=== PATIENT | male | born 1945 | race Caucasian/White ===

== ENCOUNTER 2017-11-21 17:49 | Emergency (ER) | payer MEDICARE, MEDICAID, SELFPAY ==
[2017-11-21] MEDS: Haloperidol 5 MG TAB PO (18:54)
[2017-11-21] MEDS: Citalopram 20 MG TAB PO ×2 (19:03→19:04)
[2017-11-21] MEDS: Donepezil 5 MG TAB PO (19:03)
[2017-11-21 20:07] VITALS: BP 92/48; PULSE 78; RESP 18; TEMP 36.7; O2SAT 98
--- NOTE | 2017-11-21 20:20 | W.ED.GENAD ---
Discharge Plan Disposition Patient Disposition: HOME Condition: Good Discharge Details Chief Complaint: GenMedical Clinical Impression: Aggression Primary Care Provider: Prachi Carpio ED Provider: Mustapha Retana Home Meds and New Rx's Prescriptions: No Action citalopram 20 MG tablet 10 mg PO DAILY RF: 0 simvastatin 10 MG tablet 10 mg PO HS RF: 0 acetaminophen [Acetaminophen Extra Strength] 500 MG tablet 1,000 mg PO BID PRNQty: 0 RF: 0 clopidogrel [Plavix] 75 MG tablet 75 mg PO DAILY RF: 0 donepezil 5 MG tablet 5 mg PO DAILY RF: 0 Discharge Instructions Additional Instructions: If you notice any return of his aggravation or assault, or any other significant abnormalities please bring him back to the ER for reassessment. Please use de-escalating techniques, and his home medications prior to return. Referrals: Prachi Carpio [Primary Care Provider] - Medical Decision Making This is a 72-year-old male with past medical history of dementia, previous intracranial stroke, who takes Seroquel and Aricept, who presents today for evaluation of aggressive behavior. His nursing facility he was refusing to take his medications, he was acting aggressively and trying to strike other bystanders. On his initial assessment here he was sitting calmly in the custody of police but did show some signs of mild anxiety. Family nursing staff from the facility was concerned that he does switch his mood very rapidly. Fortunately the current scenario in the emergency department was a search, there were no rooms or hallway beds available for the patient. Had a long discussion with the family, police officers, and the patient, and through shared decision making process the patient was acting calmly at this time we agreed to watch the patient in an isolated setting in the [facility] area, where no other patients were at this time. Physical exam showed no significant abnormalities, we did observe the patient for 30 minutes and he continued to demonstrate no concerning symptomatology. We then orally gave the patient his nighttime medications in addition to 5 mg of Haldol. We had a second observation period for over 1 hour, where we fed the patient, he ate [employer], drank water, and became extremely pleasant with staff and family members and nursing staff from the facility. After prolonged observation. Demonstrating no signs of aggravation, assault, or aggressive behavior we discussed the case with the family, contacted his rehab facility and discussed the case with nursing staff there. 3 continued shared decision making process we agreed that the patient was safe and stable for discharge back to his facility having taken his medications and demonstrated excellent behavior here. We will order an outpatient urinalysis for further evaluation of potential UTI at the request of family however I think this is unlikely to be the cause and etiology of his current symptoms. Patient will be discharged back to his facility under the accompaniment of nursing staff from the facility and family. All questions were answered I have extensively reviewed the treatment plan and discharge instructions with the patient and their family. I have addressed all patient concerns at this time. The patient and family was made aware of what symptoms to monitor for that would warrant a return to the emergency department. Discussed the plan with the patient and family, they demonstrate verbal understanding and agreement with our assessment and plan at this time. HPI General Date/Time Provider Initiated Documentation: 11/21/17 18:15. HPI Narrative: This is a 72-year-old male with a past medical history of an intracranial hemorrhage/stroke, dementia, high cholesterol, who was at a rehab facility, who takes Seroquel, Aricept, and Plavix. He presents today from his rehab facility with chief complaint of agitation. Nursing staff states that earlier today he began to get aggravated, cranky, it would not take his nighttime medications, and began to swing and hit at other residents. He denies any homicidal or suicidal ideations. Nursing staff felt that they were unable to meet his current needs, or de-escalate the situation in spite of their best attempts, he was sent to the ER under police escort for further evaluation and management. Upon arrival the patient was sitting calmly with police, he had no complaints personally. He shows no current aggravation. Family who is at bedside, in addition to nursing supervising staff from the facility state that this is a definite transition from where he was before, however they are concerned that he can switch his mood very quickly, and become violent. Patient has no other complaints, family has no other additional complaints at this time. Patient has had no recent traumas, falls where he has hit his head, significant medication changes in the last week, or other new aggravating or relieving components. Related Data Home Medications Medication Instructions Recorded Confirmed citalopram 10 mg PO DAILY tab-cap 12/04/13 08/08/17 simvastatin 10 mg PO HS 02/07/16 08/08/17 acetaminophen [Acetaminophen Extra 1,000 mg PO BID PRN #0 02/27/16 08/08/17 Strength] clopidogrel [Plavix] 75 mg PO DAILY tab 07/25/16 08/08/17 donepezil 5 mg PO DAILY 06/25/17 08/08/17 Previous Rx's Medication Instructions Recorded acetaminophen [Acetaminophen Extra 1,000 mg PO BID PRN #0 02/27/16 Strength] clopidogrel [Plavix] 75 mg PO DAILY tab 07/25/16 Allergies Allergy/AdvReac Type Severity Reaction Status Date / Time bupropion AdvReac Mild shakey Unverified 11/21/17 19:35 feeling General Stated Complaint: GenMedical CRISTEL: 3 Review of Systems Review of Systems All systems reviewed & are unremarkable except as noted in HPI and below PFSH Social History Smoking/Tobacco Use Status: Former Tobacco Use Exam Narrative Exam Narrative: 1.Const: Well-nourished, Well-developed, appearing stated age 2.Eyes: PERRL, no conjunctival injection, and symmetrical lids. 3.ENT: Atraumatic external nose and ears. Moist MM. Neck: Symmetric, trachea midline, No thyromegaly. 4.CVS: +S1/S2, No murmurs or gallops. Peripheral pulses 2+ and equal in all extremities. Brisk capillary refill in all extremities. 5.RESP: Unlabored respiratory effort. Clear to auscultation bilaterally. No wheezes rales or rhonchi 6.GI: Soft, Nontender/Nondistended, No hepatosplenomegaly. No guarding or rebound. 7.MSK: Normocephalic/Atraumatic, Extremities w/o deformity or ttp No cyanosis or clubbing, Normal movement of all extremities 8.Skin: Warm, Dry. No rashes or lesions. 9.Neuro: umbrella tipper II-XII grossly intact. Sensation grossly intact, no focal neurologic deficits. 10.Psych: (AAO) x3. Appropriate mood and affect. He is sitting calmly, shows no aggressive behaviors at this time. No signs of overt confusion. Course Respiratory Effort Non-Labored 11/21/17 19:30
== END 2017-11-21 20:09 | disposition home or self-care (01) ==
PROVIDERS: Emergency Provider Student in an Organized Health Care Education/Training Program; PCP Nurse Practitioner Family
DX: F03.91 Unspecified dementia, unspecified severity, with behavioral disturbance (principal)
CPT/HCPCS: 99285; 99284

== ENCOUNTER 2017-11-22 07:11 | Outpatient (REF) | payer MEDICARE, SELFPAY ==
[2017-11-22 08:56] LABS: Bilirubin Negative (Negative); Blood Negative (Negative); Clarity Clear; Glucose Negative (Negative); Ketones Negative (Negative); Leukocyte Esterase Negative (Negative); Nitrite Negative (Negative); Urobilinogen 0.2 EU/dL (Up TO 0.2); pH 5.5 (5-8)
== END 2017-11-22 07:31 ==
LOC: LBN 07:11
PROVIDERS: PCP Nurse Practitioner Family; Visit Provider Student in an Organized Health Care Education/Training Program
DX: R46.89 Other symptoms and signs involving appearance and behavior (principal)
CPT/HCPCS: 81003

== ENCOUNTER 2018-01-20 23:51 | Emergency (ER) | payer MEDICARE, MEDICAID, SELFPAY ==
[2018-01-20 23:40] VITALS: BP 92/50; TEMP 36.9
--- NOTE | 2018-01-20 23:44 | W.ED.GENAD ---
Discharge Plan Disposition Patient Disposition: SNF (LEVEL 1) [facility] Discharge Details Chief Complaint: AMS/LOC Clinical Impression: Agitation Reason For Visit: LYNN Primary Care Provider: Prachi Carpio ED Provider: Jan Fitzpatrick Home Meds and New Rx's Prescriptions: Continued mirtazapine 7.5 mg Tablet 7.5 mg PO DAILY RF: 0 acetaminophen [Acetaminophen Extra Strength] 500 MG tablet 1,000 mg PO BID PRNQty: 0 RF: 0 clopidogrel [Plavix] 75 MG tablet 75 mg PO DAILY RF: 0 donepezil 5 MG tablet 5 mg PO DAILY RF: 0 quetiapine [Seroquel] 25 mg Tablet 12.5 mg PO DAILY RF: 0 Discharge Instructions Additional Instructions: Please take your medications as prescribed. Please follow-up with your doctor. Return to the ER for any worsening or new concerning symptoms. Discharge Data Discharge Date/Time-TO BE ENTERED AT DEPARTURE: 01/21/18 01:52 Medical Decision Making 23:59 --72-year-old male with history of dementia arrives from nursing rehab facility with concern for compatible behavior and medication noncompliance. Patient was given his Seroquel 12.5 mg as well as Ativan 1 mg orally with a nice pop which he requested. No signs of focal bacterial infection on exam. History and review of systems limited secondary to dementia. Plan to check urinalysis to rule out UTI. 1:34 --urinalysis obtained by straight catheterization reviewed and is not consistent with a UTI. Patient reassessed multiple times. He has been quite cooperative here in the emergency department. No agitated behavior. Patient was given ice pops which he much appreciated and was happy to take his medication. He was transfered back to nursing care facility in stable condition. HPI General Mode of arrival: EMS. Date/Time Provider Initiated Documentation: 01/20/18 23:55. Limitations to Documentation: altered mental status. Information obtained by: patient and EMS. HPI Narrative: 72-year-old male with history of dementia, custodial resident, arrives with EMS with concern from custodial staff for agitation. Apparently the patient was refusing to take his nighttime dose of Seroquel and was kicking staff. Patient has no complaint. History and review of systems limited as patient has dementia. Related Data Home Medications Medication Instructions Recorded Confirmed acetaminophen [Acetaminophen Extra 1,000 mg PO BID PRN #0 02/27/16 11/21/17 Strength] clopidogrel [Plavix] 75 mg PO DAILY tab 07/25/16 01/21/18 donepezil 5 mg PO DAILY 06/25/17 01/21/18 quetiapine [Seroquel] 12.5 mg PO DAILY 11/21/17 11/21/17 mirtazapine 7.5 mg PO DAILY 01/21/18 01/21/18 Previous Rx's Medication Instructions Recorded acetaminophen [Acetaminophen Extra 1,000 mg PO BID PRN #0 02/27/16 Strength] clopidogrel [Plavix] 75 mg PO DAILY tab 07/25/16 Allergies Allergy/AdvReac Type Severity Reaction Status Date / Time bupropion AdvReac Mild shakey Unverified 01/21/18 00:00 feeling General CRISTEL: 3 Review of Systems Review of Systems Unobtainable due to mental status PFSH Dementia (Chronic) Social History Smoking/Tobacco Use Status: Former Tobacco Use Exam Const General: cooperative and no acute distress HENMT Head: normocephalic and atraumatic Mouth: moist mucous membranes Eyes Conjunctivae: normal conjunctivae Sclera: normal sclerae EOM: EOM intact bilaterally Resp Auscultation: clear to auscultation bilaterally, no rales, no rhonchi and no wheezes Cardio Jugular venous pressure: no JVD Rate: regular rate and not tachycardic Rhythm: regular rhythm GI Palpation: soft, not firm, no guarding, no masses, not rigid and nontender Skin General skin exam: no rashes or lesions noted Neuro General: alert, awake, oriented Patient Orientation: Person and Confused, tone normal and other (Harmeet; neuro exam limited 2/2 dementia) Extrem General: no edema Psych Speech and Movement: speech and movement normal Affect: No hostile and No irritable affect Attitude: cooperative
[2018-01-20] MEDS: LORazepam 1 MG TAB PO (23:56)
[2018-01-20] MEDS: QUEtiapine 25 MG TAB 12.5 MG PO (23:58)
--- NOTE | 2018-01-21 00:01 | ED.GENADUL_ITS ---
Discharge Plan Disposition Patient Disposition: SNF (LEVEL 1) [facility] Discharge Details Chief Complaint: AMS/LOC Clinical Impression: Agitation Reason For Visit: LYNN Primary Care Provider: Prachi Carpio ED Provider: Jan Fitzpatrick Home Meds and New Rx's Prescriptions: Continued mirtazapine 7.5 mg Tablet 7.5 mg PO DAILY RF: 0 acetaminophen [Acetaminophen Extra Strength] 500 MG tablet 1,000 mg PO BID PRNQty: 0 RF: 0 clopidogrel [Plavix] 75 MG tablet 75 mg PO DAILY RF: 0 donepezil 5 MG tablet 5 mg PO DAILY RF: 0 quetiapine [Seroquel] 25 mg Tablet 12.5 mg PO DAILY RF: 0 Discharge Instructions Additional Instructions: Please take your medications as prescribed. Please follow-up with your doctor. Return to the ER for any worsening or new concerning symptoms. Discharge Data Discharge Date/Time-TO BE ENTERED AT DEPARTURE: 01/21/18 01:52 Medical Decision Making 23:59 --72-year-old male with history of dementia arrives from nursing rehab facility with concern for compatible behavior and medication noncompliance. Patient was given his Seroquel 12.5 mg as well as Ativan 1 mg orally with a nice pop which he requested. No signs of focal bacterial infection on exam. History and review of systems limited secondary to dementia. Plan to check urinalysis to rule out UTI. 1:34 --urinalysis obtained by straight catheterization reviewed and is not consistent with a UTI. Patient reassessed multiple times. He has been quite cooperative here in the emergency department. No agitated behavior. Patient was given ice pops which he much appreciated and was happy to take his medication. He was transfered back to nursing care facility in stable condition. HPI General Mode of arrival: EMS . Date/Time Provider Initiated Documentation: 01/20/18 23:55 . Limitations to Documentation: altered mental status . Information obtained by: patient and EMS . HPI Narrative: 72-year-old male with history of dementia, long term resident, arrives with EMS with concern from long term staff for agitation. Apparently the patient was refusing to take his nighttime dose of Seroquel and was kicking staff. Patient has no complaint. History and review of systems limited as patient has dementia. Related Data Home Medications Medication Instructions Recorded Confirmed acetaminophen [Acetaminophen Extra 1,000 mg PO BID PRN #0 02/27/16 11/21/17 Strength] clopidogrel [Plavix] 75 mg PO DAILY tab 07/25/16 01/21/18 donepezil 5 mg PO DAILY 06/25/17 01/21/18 quetiapine [Seroquel] 12.5 mg PO DAILY 11/21/17 11/21/17 mirtazapine 7.5 mg PO DAILY 01/21/18 01/21/18 Previous Rx's Medication Instructions Recorded acetaminophen [Acetaminophen Extra 1,000 mg PO BID PRN #0 02/27/16 Strength] clopidogrel [Plavix] 75 mg PO DAILY tab 07/25/16 Allergies Allergy/AdvReac Type Severity Reaction Status Date / Time bupropion AdvReac Mild shakey Unverified 01/21/18 00:00 feeling General CRISTEL: 3 Review of Systems Review of Systems Unobtainable due to mental status PFSH Dementia (Chronic) Social History Smoking/Tobacco Use Status: Former Tobacco Use Exam Const General: cooperative and no acute distress HENMT Head: normocephalic and atraumatic Mouth: moist mucous membranes Eyes Conjunctivae: normal conjunctivae Sclera: normal sclerae EOM: EOM intact bilaterally Resp Auscultation: clear to auscultation bilaterally, no rales, no rhonchi and no wheezes Cardio Jugular venous pressure: no JVD Rate: regular rate and not tachycardic Rhythm: regular rhythm GI Palpation: soft, not firm, no guarding, no masses, not rigid and nontender Skin General skin exam: no rashes or lesions noted Neuro General: alert, awake, oriented Patient Orientation: Person and Confused, tone normal and other (Harmeet; neuro exam limited 2/2 dementia) Extrem General: no edema Psych Speech and Movement: speech and movement normal Affect: No hostile and No irritable affect Attitude: cooperative
[2018-01-21 00:02] VITALS: RESP 16
[2018-01-21 01:10] LABS: Bilirubin Negative (Negative); Blood Trace-intact (Negative); Clarity Sl Cloudy; Glucose Negative (Negative); Ketones Negative (Negative); Leukocyte Esterase Negative (Negative); Nitrite Negative (Negative); Specific Gravity >= 1.030 (1.005-1.025); Urobilinogen 0.2 EU/dL (Up TO 0.2); pH 5.5 (5-8)
[2018-01-21 01:17] LABS: Bacteria Rare HPF (Negative); C & S Indicated? No; Casts Negative LPF (Negative); Crystals Negative HPF (Negative); Epithelial Cells Few HPF (Negative); Mucus Negative (Negative)
[2018-01-21 01:39] VITALS: BP 110/75; PULSE 92; RESP 18; TEMP 36.9; O2SAT 93
== END 2018-01-21 01:52 | disposition skilled nursing facility (03) ==
LOC: ER 01-21 01:52
PROVIDERS: Emergency Provider Student in an Organized Health Care Education/Training Program; PCP Nurse Practitioner Family
DX: R45.1 Restlessness and agitation (principal); F03.91 Unspecified dementia, unspecified severity, with behavioral disturbance
CPT/HCPCS: 51701; 99283; 81003; 81015